=== PATIENT | male | born 1975 | race Caucasian/White ===

== ENCOUNTER 2016-11-02 18:16 | Emergency (ER) | payer MEDICAID ==
[~2016-11-02 18:16] MED LIST: CYCLOBENZAPRINE; GABAPENTIN
== END 2016-11-02 22:00 | disposition left against medical advice (07) ==
LOC: ER 21:28
DX: M54.2 Cervicalgia (principal); Z53.21 Procedure and treatment not carried out due to patient leaving prior to being seen by health care provider

== ENCOUNTER 2016-11-08 18:41 | Emergency (ER) | payer MEDICAID ==
[~2016-11-08] VITALS: Ht 177.8 cm; Wt 82.0 kg
[2016-11-08 18:47] VITALS: BP 132/90
== END 2016-11-09 01:22 | disposition left against medical advice (07) ==
LOC: ER 18:41
DX: M25.519 Pain in unspecified shoulder (principal); Z53.21 Procedure and treatment not carried out due to patient leaving prior to being seen by health care provider